=== PATIENT | female | born 1985 | race Native Hawaiian/Other Pacific Islander ===

== ENCOUNTER 2021-01-22 14:54 | Emergency (ER) | payer OTHER ==
[~2021-01-22] VITALS: Ht 157.5 cm; Wt 56.2 kg
[2021-01-22 15:11] VITALS: TEMP 98.2
[2021-01-22 16:02] VITALS: BP 108/64
== END 2021-01-22 16:04 | disposition home or self-care (01) ==
LOC: ED 14:54
DX: J06.9 Acute upper respiratory infection, unspecified (principal); F17.210 Nicotine dependence, cigarettes, uncomplicated; Z20.822 Contact with and (suspected) exposure to COVID-19
CPT/HCPCS: 87635; 87651; 99283; U0003